=== PATIENT | male | born 1970 | race Caucasian/White ===

== ENCOUNTER 2024-01-22 10:54 | Emergency (ER) | payer OTHER, SELFPAY ==
[2024-01-22] VITALS (19 sets, daily range): BP systolic 92–123; BP diastolic 59–88; PULSE 89–118; RESP 8–24; TEMP 36.5; O2SAT 98–100; BMI 42.2
--- NOTE | 2024-01-22 11:29 | ED.GENADUL1 ---
HPI - General Adult General Chief complaint: Weakness Stated complaint: DIZZINESS Time Seen by Provider: 01/22/24 11:24 Source: patient Mode of arrival: ambulance Limitations: no limitations History of Present Illness HPI narrative: Patient is a 53-year-old male who is presenting to the ER with multiple chronic concerns and complaints. Patient came from his PCP office by ambulance to the ER secondary to weakness, and he was unable to get up and ambulate from the chair in the office. However, patient lives in [place]. Patient drove his own car to the office today to the [facility]. Patient has chronic lower back pain, chronic lower abdominal pain, weakness, mild dehydration. 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 Patient has been having ongoing weakness, since approximately September to October. Patient states that he participated in a [facility] football game in [place] and also a [facility] football game in [place]. Patient was able to be in a car, walk around the stadium's, but stated the weakness was ongoing at that time but is slowly been getting worse. Patient has no neurological dysfunction. He has no headache or neck pain. No chest pain or shortness of breath. Patient has a history of chronic poor dentition. Patient has chronic lower back pain. Patient has intermittent radiculopathy to his lower extremities. Patient has intermittent lower abdominal pain where he feels like my lower abdomen feels like it is on ice. All systems are negative except as noted/marked. All systems reviewed and otherwise negative. Nurses note and vital signs reviewed and patient is not hypoxic. General: The patient appears well and in no apparent distress. Patient is resting comfortably on cart. Patient is not toxic, lethargic, or listless. Patient is unkempt, poor hygiene Skin: Warm, dry, no pallor noted. There is no rash noted. No petechiae, purpura. Head: Normocephalic, atraumatic Eye: Normal conjunctiva, no drainage, EOMI. PERRL Ears, Nose, Mouth, and Throat: oral mucosa is moist. Extremely poor dental caries throughout, most of his teeth are eroded down to the gumline's. No acute signs of gingivitis, ANUG, or periapical abscess. Nares patent. Mouth without vesicles. Cardiovascular: Regular Rate and Rhythm, no murmur, gallop, rub Respiratory: Patient is in no distress, no accessory muscle use, lungs are clear to auscultation, no wheezing, rales or rhonchi Back: Patient has mild to moderate tenderness palpation above his buttocks non-tender, no CVA tenderness bilaterally to percussion. No CT LS midline pain GI: Morbidly obese, fine reddish colored skin around his umbilicus, no true signs of tinea corporis. No flank pain bilateral. Today he has no left lower or right lower quadrant tenderness to palpation, otherwise the rest of his abdomen shows no tenderness to palpation, no masses appreciated. No rebound, guarding, or rigidity noted. No distention Musculoskeletal: Patient has full range of motion of all of the extremities, no motor, sensory, or focal neurological deficits. Neurological: A&O x4, normal speech Psychiatric: Cooperative Related Data Previous Rx's Medication Instructions Recorded lidocaine 5 % topical patch 1 patch topical Q24H #15 ea 01/22/24 (Lidoderm) Allergies Allergy/AdvReac Type Severity Reaction Status Date / Time Penicillins Allergy Severe Rash Verified 01/22/24 10:58 [facility] Social History Smoking status: Never smoker Exam Constitutional Vital Signs, click to edit/add: Last Vital Signs Temp 97.7 F 01/22/24 10:59 Pulse 98 H 01/22/24 12:50 Resp 16 01/22/24 12:50 BP 107/75 01/22/24 12:45 Pulse Ox 99 01/22/24 12:50 O2 Del Method Room Air 01/22/24 10:59 Course Vital Signs Vital signs: Vital Signs Pulse Rate 97 H 01/22/24 10:58 Respiratory Rate 13 01/22/24 10:58 Pulse Oximetry 100 01/22/24 10:58 Temperature 97.7 F 01/22/24 10:59 Pulse Rate 98 H 01/22/24 12:50 Respiratory Rate 16 01/22/24 12:50 Blood Pressure 107/75 01/22/24 12:45 Pulse Oximetry 99 01/22/24 12:50 Oxygen Delivery Method Room Air 01/22/24 10:59 Medical Decision Making MDM Narrative Medical decision making narrative: Patient feels better after 1 L of IV fluid. Patient's lab work shows no significant findings. Michel came to see and evaluate the patient as well from social media assistant. Resources were given to the patient to help him at home. Patient's brother is currently in rehabilitation for alcoholism. Patient lives with his brother. Patient's brother has typically helped him care for himself. Patient is currently living at home alone. Patient does feel safe at home. Patient drives to work, he is a real estate office manager of [employer]. No acute indication for admission to the hospital at this time. Patient has left foot drop. Patient wears his brace, also uses a cane to help with ambulation. Patient will be discharged to follow-up with PCP. A lot of education was discussing chronic abdominal pain, chronic back pain, patient is to have a colonoscopy, following up with PCP for physical therapy, additional outpatient imaging as needed for his lower back. Patient understands. No questions at discharge. Lab Data Labs: Lab Results 01/22/24 Range/Units 11:10 WBC 7.9 (4.0-11.0) 10^3/uL RBC 4.11 L (4.70-6.10) 10^6/uL Hgb 14.6 (14.0-18.0) g/dL Hct 42.0 (42.0-54.0) % MCV 102.2 H (80.0-94.0) fL MCH 35.5 H (25.9-34.0) pg MCHC 34.8 (29.9-35.2) g/dL RDW 14.1 (11.0-15.0) % Plt Count 309 (150-450) 10^3/uL MPV 9.2 L (9.5-13.5) fL Neut % (Auto) 79.8 H (43.0-75.0) % Lymph % (Auto) 7.8 L (20.5-60.0) % [place] % (Auto) 9.4 (1.7-12.0) % Eos % (Auto) 0.4 L (0.9-7.0) % Baso % (Auto) 0.9 (0.2-2.0) % Neut # (Auto) 6.3 (1.4-6.5) 10^3/uL Lymph # (Auto) 0.6 L (1.2-3.8) 10^3/uL [place] # (Auto) 0.7 (0.3-0.8) 10^3/uL Eos # (Auto) 0.0 (0.0-0.7) 10^3/uL Baso # (Auto) 0.1 (0.0-0.1) 10^3/uL Abs Immat Gran (auto) 0.13 H (0.00-0.03) 10^3/uL Imm/Tot Granulo (auto) 1.7 H (0.0-0.5) % Sodium 135 L (136-145) mmol/L Potassium 3.5 (3.5-5.1) mmol/L Chloride 96 L (98-107) mmol/L Carbon Dioxide 30.6 (21.0-32.0) mmol/L Anion Gap 11.9 BUN 9.0 (7.0-18.0) mg/dL Creatinine 0.99 (0.70-1.30) mg/dL Est GFR ( Amer) >60 (>=60) Est GFR (Non-Af Amer) >60 (>=60) BUN/Creatinine Ratio 9.1 Glucose 72 L (74-106) mg/dL Calcium 7.8 L (8.5-10.1) mg/dL Magnesium 1.7 L (1.8-2.4) mg/dL Total Bilirubin 1.1 H (0.2-1.0) mg/dL AST 35 (15-37) U/L ALT 31 (16-63) U/L Alkaline Phosphatase 135 H (46-116) U/L Total Protein 5.7 L (6.4-8.2) g/dL Albumin 2.0 L (3.4-5.0) g/dL Globulin 3.7 g/dL Albumin/Globulin Ratio 0.5 ECG Data Attestation: I personally reviewed and interpreted this ECG as follows: (EKG interpretation. Normal sinus rhythm at 97 beats a minute. Normal axis deviation. Artifact seen. QTc of 387.) Discharge Plan Discharge Chief Complaint: Weakness Clinical Impression: Chronic lumbar radiculopathy, Generalized weakness, Dental caries, Mild dehydration Patient Disposition: Home, Self-Care Time of Disposition Decision: 14:19 Condition: Fair Prescriptions / Home Meds: New lidocaine [Lidoderm] 5 % adhesive patch,medicated 1 patch topical Q24H Qty: 15 0RF Rx Instructions: leave on most painful area for up to 12 hrs Instructions: Dehydration (ED), Lumbar Radiculopathy (ED), Weakness (ED), Mouth Care (ED) Additional Instructions: Call your PCP to follow-up with additional outpatient testing as needed. You need to have a prophylactic colonoscopy done as discussed by the start of age 51. We discussed the possibility of physical therapy for lumbar back pain. You may need MRI in the future. You may need to follow-up with GI physician for ongoing lower abdominal pain as well, along with colonoscopy. Stand Alone Forms: Work/School Release, Portal Instructions Referrals: BRANDON ORLANDO [Primary Care Provider] - 1 week
[2024-01-22 11:34] LABS: Basophils Absolute Auto 0.1 10^3/uL (0.0-0.1); Basophils Percent Auto 0.9 % (0.2-2.0); Eosinophils Percent Auto 0.4 % (0.9-7.0); Hemoglobin 14.6 g/dL (14.0-18.0); Immature Granulocytes Abs Auto 0.13 10^3/uL (0.00-0.03); Immature Granulocytes Pct Auto 1.7 % (0.0-0.5); Lymphocytes Absolute Auto 0.6 10^3/uL (1.2-3.8); Lymphocytes Percent Auto 7.8 % (20.5-60.0); Mean Corpuscular HGB Conc 34.8 g/dL (29.9-35.2); Mean Corpuscular Hemoglobin 35.5 pg (25.9-34.0); Mean Corpuscular Volume 102.2 fL (80.0-94.0); Mean Platelet Volume 9.2 fL (9.5-13.5); Monocytes Absolute Auto 0.7 10^3/uL (0.3-0.8); Monocytes Percent Auto 9.4 % (1.7-12.0); Neutrophils Absolute Auto 6.3 10^3/uL (1.4-6.5); Neutrophils Percent Auto 79.8 % (43.0-75.0); Platelet Count 309 10^3/uL (150-450); Red Blood Count 4.11 10^6/uL (4.70-6.10); Red Cell Distribution Width 14.1 % (11.0-15.0); White Blood Count 7.9 10^3/uL (4.0-11.0)
[2024-01-22] MEDS: 0.9 % SODIUM CHLORIDE 1,000 ML 999 ML IV (11:45)
--- NOTE | 2024-01-22 11:46 | XR_ITS ---
The [address] [address] Patient Name: CARLOS A THOMPSON MRN: [id number] date: 1970 Sex: M Assigned Patient Location: ED.MAIN Current Patient Location: ER Accession/Order Number: [id number] Exam Date: 01/22/2024 11:30 Report Date: 01/22/2024 12:09 At the request of: JAYDON HATHAWAY Procedure: XR chest 2V EXAM: CHEST 1 VIEW HISTORY: weak TECHNIQUE: Chest, one view. COMPARISON: 11/23/2015. FINDINGS: Lungs are clear. No focal consolidation, pleural effusion, or pneumothorax. Pulmonary vasculature is within normal limits. Cardiomediastinal silhouette is normal. XR/XR chest 2V IMPRESSION: 1. No acute cardiopulmonary disease. Electronically authenticated by: VALERIE POPE Date: 01/22/2024 12:09
[2024-01-22 11:49] LABS: Alanine Aminotransferase 31 U/L (16-63); Albumin Globulin Ratio 0.5; Alkaline Phosphatase 135 U/L (46-116); Anion Gap 11.9; Aspartate Amino Transferase 35 U/L (15-37); BUN Creatinine Ratio 9.1; Bilirubin Total 1.1 mg/dL (0.2-1.0); Calcium 7.8 mg/dL (8.5-10.1); Carbon Dioxide 30.6 mmol/L (21.0-32.0); Chloride 96 mmol/L (98-107); Estimated GFR (African America >60 (>=60); Estimated GFR (Non-African Ame >60 (>=60); Globulin 3.7 g/dL; Glucose 72 mg/dL (74-106); Magnesium 1.7 mg/dL (1.8-2.4); Potassium 3.5 mmol/L (3.5-5.1); Sodium 135 mmol/L (136-145); Total Protein 5.7 g/dL (6.4-8.2)
[2024-01-22] MEDS: MAGNESIUM OXIDE 400 MG TABLET 800 MG PO (12:53)
--- NOTE | 2024-01-22 14:57 | ECG_ITS ---
The [facility] Test Date: 2024-01-22 Pat Name: CARLOS A THOMPSON Department: Room: - Gender: Male Recording Clerk: : 1970 Requested By: [id number] Order Number: [id number] Reading MD: LEI HORN Measurements Intervals [employer] Rate: 97 P: 51 AL: 152 QRS: 7 QRSD: 70 T: 42 QT: 332 QTc: 387 Interpretive Statements 1100 Sinus rhythm 9110 normal ECG No previous ECG available for comparison Electronically Signed On 01-23-2024 6:36:08 EST by LEI HORN
--- NOTE | 2024-01-22 15:58 | SWNOTE1 ---
SW met with pt as requested by physician due to pt living at home alone and possibility of getting resources for pt. SW met with pt. He lives in [facility]. Pt works still and drives as well. Pt usually lives with his brother, but he is in rehab for alcohol. Pt voices he has a sister that lives about 5 houses down and another sister in [place]. They have been assisting with food/groceries. Pt also voiced his neighbors at [facility] all look out for eachother as well. Home health was mentioned, but he is not home bound and still works. SW did ask pt if he needs any other resources or has any other concerns? Pt voied he does not. SW encouraged pt to continue to move and stay active.
== END 2024-01-22 14:40 | disposition home or self-care (01) ==
PROVIDERS: Emergency Provider Emergency Medicine; PCP Physician Assistant
DX: R53.1 Weakness (principal); E86.0 Dehydration; M54.16 Radiculopathy, lumbar region; K02.9 Dental caries, unspecified; E66.01 Morbid (severe) obesity due to excess calories; Z68.41 Body mass index [BMI] 40.0-44.9, adult
CPT/HCPCS: 36415; 71046; 80053; 81001; 83735; 85025; 93005; 96360; 96361; 99285